=== PATIENT | female | born 1940 | race Two or more races ===

== ENCOUNTER 2025-02-26 08:16 | Outpatient (REF) | payer MEDICARE, SELFPAY ==
--- NOTE | 2025-02-26 | EMG_ITS ---
Chief complaint: Bilateral hand numbness and pain Reason for referral: G56.03 Carpal tunnel syndrome Referred by: Franky Meneses MD Procedure done: Bilateral upper extremity NCS / EMG Bilateral median and ulnar motor studies were performed. Bilateral median and ulnar mixed sensory studies were performed. Bilateral radial sensory studies were performed an EMG needle examination was performed. Bilateral median motor distal latencies were prolonged with minimal amplitudes and normal conduction velocities. Left ulnar conduction velocity was moderately slowed across elbow. It was mildly slow across right elbow. Median mixed sensory studies revealed significantly delayed distal latencies and moderately slow conduction velocities. Impression: 1. 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 Mild bilateral ulnar neuropathy across cubital tunnel MTDD
--- OUTSIDE RECORDS SUMMARY | 2025-02-26 08:29 | XMS_ITS | Clinical Summary ---
Author Organization [facility] Address [address] [place] [address] Phone Care Team Providers Care Event Promoter Name Role Phone Lalita Estevez MD Primary Care Provider [phone] Allergies No known active allergies Medications fluticasone furoate (Arnuity Ellipta) 100 mcg/actuation blister with device inhaler Inhale 1 puff by mouth 2 (two) times a day. 4 Active nystatin (MYCOSTATIN) cream Apply to affected area under breast bid prn Active aspirin 81 mg EC tablet Take by mouth Active Ventolin HFA 90 mcg/actuation inhaler INHALE 2 PUFFS INTO THE LUNGS EVERY 6 HOURS NEEDED FOR COUGH OR WHEEZING 18 g 5 Active losartan (COZAAR) 50 mg tablet TAKE 1 TABLET(50 MG) BY MOUTH AT BEDTIME 90 tablet 1 5 Active estradioL (ESTRACE) 0.01 % (0.1 mg/gram) vaginal cream Please use 0.5 g (a pea-sized amount) on your finger and place inside the vagina twice a week at night (Mondays and ) 42.5 g 3 5 Active folic acid (FOLVITE) 1 mg tablet Take 1 tablet (1,000 mcg total) by mouth 2 (two) times a week. 24 tablet 1 5 Active levothyroxine (SYNTHROID, LEVOTHROID) 100 mcg tablet Take 1 tablet (100 mcg total) by mouth 1 (one) time each day before breakfast. 90 tablet 1 5 Active cyanocobalamin (VITAMIN B-12) 1,000 mcg tablet Take 1 tablet (1,000 mcg total) by mouth 2 (two) times a week. 24 tablet 1 5 Active chlorthalidone (HYGROTON) 25 mg tablet Take 1 tablet (25 mg total) by mouth 1 (one) time each day. 90 tablet 1 5 Active atorvastatin (LIPITOR) 20 mg tablet Take 1 tablet (20 mg total) by mouth at bedtime. 90 tablet 1 5 Active acyclovir (ZOVIRAX) 400 mg tablet Take 1 tab (400 mg) by mouth 3 times a day for 5 days. 15 tablet 5 5 03/01/20 25 Active levothyroxine (SYNTHROID, LEVOTHROID) 100 mcg tablet TAKE 1 TABLET(100 MCG) BY MOUTH 1 TIME EACH DAY BEFORE BREAKFAST 90 tablet 1 5 02/20/20 25 Discontinu ed(Reorder ) cyanocobalamin (VITAMIN B-12) 1,000 mcg tablet TAKE 1 TABLET(1000 MCG) BY MOUTH 2 TIMES A WEEK 24 tablet 1 5 02/20/20 25 Discontinu ed(Reorder ) chlorthalidone (HYGROTON) 25 mg tablet Take 1 tablet (25 mg total) by mouth 1 (one) time each day. 90 tablet 5 02/20/20 25 Discontinu ed(Reorder ) atorvastatin (LIPITOR) 20 mg tablet Take 1 tablet (20 mg total) by mouth at bedtime. 90 tablet 5 02/20/20 25 Discontinu ed(Reorder ) Hospital, Clinic, or Other Facility Administered Medication Ordered Dose Route Frequency Start Date End Date Status triamcinolone acetonide (KENALOG-40) 40 mg/mL injection 40 mgIndications:Calcif ic tendinitis of right shoulder 40 mg IAtc Once PRN Procedure 01/31/2025 01/31/2025 Ended Active Problems Problem Noted Date Diagnosed Date Anxiety 04/10/2024 Hyperlipidemia 04/10/2024 Overview (06/04/2024): Hypothyroidism 04/10/2024 Asthma 04/10/2024 HTN (hypertension) 04/10/2024 Renal cyst 04/10/2024 Overview (04/10/2024): needs follow up ultrasound in 2 years Varicose veins of both lower extremities with pa in 07/13/2023 Lymphedema 07/13/2023 GERD (gastroesophageal reflux disease) Microalbuminuria 05/30/2023 Severe obesity (BMI 35.0-39. 9) with comorbidity ([facility] V24, [facility] V28) 05/30/2023 Type II diabetes mellitus wi th renal manifestations ([facility] V24, [facility] V28) 08/18/2021 Osteopenia 03/06/2018 Overview (12/13/2024): Normal in 2012, osteopenia in 2017- rpt in 3 yrs- 06/2020 -2.1- rpt in 2-3 yrs 12/07 T score spine -0.2 hip -1.8 FRAX score 17% 10 year fracture risk Urge incontinence 03/22/2014 Overview (04/10/2024): Retropubic mid urethral sling Lumbar degenerative disc disease 02/07/2013 Spinal stenosis of lumbar re gion with neurogenic claudication 02/07/2013 Osteoarthritis 12/14/2012 Resolved Problems Problem Noted Date Diagnosed Date Resolved Date Lymphatic edema 03/21/2024 04/09/2024 Encounters Date Type Department Care Team Description 02/19/2025 9:45 AM EDT Office Visit Adult Medicine [address] [phone] Lalita Estevez MD Primary hypertension (Primary Dx); Other hyperlipidemia; Hypothyroidism due to acquired atrophy of thyroid; Moderate persistent asthma without complication; Type 2 diabetes mellitus with chronic kidney disease, without long-term current use of insulin, unspecified CKD stage ([facility] V24, [facility] V28); Constipation, unspecified constipation type 02/19/2025 Results Follow-Up Adult [address] [phone] Lalita Estevez MD 01/31/2025 9:30 AM EDT Office Visit [facility] [address] [facility] [address] [place] [phone] Franky Meneses MD Calcific tendinitis of right shoulder (Primary Dx); Acquired trigger finger of left middle finger; Bilateral carpal tunnel syndrome 12/31/2024 9:30 AM EDT Office Visit [facility] [address] [facility] [address] [place] [phone] Franky Meneses MD Bilateral carpal tunnel syndrome (Primary Dx); Calcific tendinitis of right shoulder; Glenohumeral arthritis, right; Acquired trigger finger of left middle finger 12/27/2024 11:30 AM EDT Treatment [address] [phone] Jacki Thakur, PT Chronic left-sided low back pain, unspecified whether sciatica present (Primary Dx) 12/25/2024 3:00 PM EDT Office Visit Urogynecology [address] [phone] Stacy Liao MD Urge incontinence (Primary Dx); Urinary urgency; Urinary frequency; Nocturia; Detrusor overactivity; Nocturnal enuresis 12/24/2024 11:30 AM EDT Treatment [address] [phone] Jacki Thakur, PT Chronic left-sided low back pain, unspecified whether sciatica present (Primary Dx) 12/20/2024 11:30 AM EDT Treatment [address] [phone] Jacki Thakur, PT Chronic left-sided low back pain, unspecified whether sciatica present (Primary Dx) 12/18/2024 11:30 AM EDT Treatment [facility] [address] [phone] Jacki Thakur, PT Chronic left-sided low back pain, unspecified whether sciatica present (Primary Dx) 12/14/2024 11:30 AM EDT Treatment [address] [phone] Jacki Thakur, PT Chronic left-sided low back pain, unspecified whether sciatica present (Primary Dx) 12/13/2024 9:39 AM EDT - 12/13/2024 11:59 PM EDT Hospital Encounter [facility] Bone Density [address] [place] [phone] Osteopenia, unspecified location; Asymptomatic menopausal state Discharge Disposition: Home or Self Care 12/11/2024 11:30 AM EDT Treatment [address] [phone] Dennis Patricio, SALES SERVICE REP Chronic left-sided low back pain, unspecified whether sciatica present (Primary Dx) 12/06/2024 11:00 AM EDT Treatment [address] [phone] Srikanth Laguna, SALES SERVICE REP Chronic left-sided low back pain, unspecified whether sciatica present (Primary Dx) 12/04/2024 9:30 AM EDT Procedure visit Urogynecology - [address] [phone] Stacy Liao MD Detrusor overactivity (Primary Dx); Urge incontinence; Urinary urgency; Urinary frequency; Nocturia 11/30/2024 1:00 PM EDT Treatment [address] [phone] Jg Quigley, SALES SERVICE REP Chronic left-sided low back pain, unspecified whether sciatica present (Primary Dx) from Last 3 Months Immunizations Immunization Administration Dates Next Due Influenza Quadravalent, 0.5m l (Fluad) 65yo and older 02/22/2020 Influenza Quadravalent, 0.5m l (Fluzone High-dose) 65yo and older 02/16/2023,02/23/2022,02/17/2021 Influenza trivalent, 0.5mL ( Fluad) 65yo and older 02/19/2025,01/30/2024,02/23/2022,02/17,02/22/2020 Influenza trivalent, 0.5mL ( Fluzone High-dose) 65yo and older 01/30/2024,02/01/2019,02/21/2018,01/04,02/23/2016 Influenza trivalent, 0.5mL, preservative free (Fluarix; FluLaval; Fluzone) ages 6mo and older (Afluria) 3 years and older 03/07/2014,03/07/2013 Influenza trivalent, with pr eservative (Fluzone; Afluria) 6mo and older 03/07/2014,03/07/2013,02/19/2011,01/31 Influenza, Unspecified 02/13/2019 Moderna (age 6mo & older) Bi valent, COVID-19, 0.5 mL or 0.25 mL dosage 04/11/2022 Pfizer (ages 12 & older) Biv alent, COVID-19 04/11/2022 Pneumococcal conjugate 13 va lent (Prevnar 13, PCV13) 2mo and older 01/13/2018,01/04/2017 Pneumococcal polysaccharide 23 valent (Pneumovax 23) 2yo and older 02/21/2018,03/07/2013 Td Tetanus diptheria (Tdvax) 7yo and older 10/04/2016 Zoster Live 11/26/2013 Zoster recombinant (Shingrix ) 19yo and older 02/23/2022,04/26/2021,02/25/2021 Surgical History Surgery Date Site/Laterality Comments HERNIA REPAIR 03/2012 umbilical ABDOMINAL SURGERY 2006 : had peritonitis sec to obstruction and explaoratory laprotomy done in [facility] in 2006 SINUS SURGERY OTHER SURGICAL HISTORY : tubes placed in the ears TOTAL KNEE ARTHROPLASTY 06/2015 Right BREAST BIOPSY left bx neg Medical History Medical History Date Comments HTN (hypertension) Hyperlipidemia Hypothyroidism Anxiety Asthma Renal cyst needs follow up ultrasound in 2 years Osteoarthritis 12/14/2012 Lumbar degenerative disc disease 02/07/2013 Spinal stenosis of lumbar re gion with neurogenic claudication 02/07/2013 Urge incontinence 03/22/2014 Type II diabetes mellitus wi th renal manifestations ([facility], [facility] V[facility]) 08/18/2021 Family History Medical History Relation Name Comments Colon cancer Brother diagnosed in 60 s Other cancer Father Hypertension Mother Breast cancer Neg Hx Relation Name Status Comments Brother Father Mother Social History Tobacco Use Types Packs/Day Years Used Date Smoking Tobacco: Never Smokeless Tobacco: Never Tobacco Cessation:Counseling Given: Not Answered Alcohol Use Standard Drinks/Week Comments No 0 (1 standard drink = 0.6 oz pur e alcohol) Housing Instability Answer Date Recorde d Are you worried that in the next 2 months you may not have stable housing? No 10/11/2024 Food Access & Nutrition Answer Date Rec orded Do you have access to a vari ety of food including fruits and vegetables? Yes 10/11/2024 Access to Healthcare Answer Date Record ed Within the last 3 months, hector melvin many times did you visit the emergency department for your medical care? 0 10/11/2024 Health Literacy Answer Date Recorded How often do you need to hav e someone help you when you read instructions, pamphlets, or other written material from your doctor or pharmacy? Sometimes 10/11/2024 Caregiver: How often do you need to have someone help you when you read instructions, pamphlets, or other written material from your doctor or pharmacy? Not on file 10/11/2024 Financial Risk Answer Date Recorded How hard is it for you to pa y for the very basics like food, housing, medical care, and air conditioning / heating? Not very hard 10/11/2024 Transportation Answer Date Recorded Has the lack of transportati on kept you from meetings, work, or from getting things needed for daily living? No Has the lack of transportati on kept you from medical appointments or from getting medications? No 10/11/2024 Social Isolation Answer Date Recorded How often do you feel lonely or isolated from th ose around you? Never 10/11/2024 Food Risk Answer Date Recorded Within the past 12 months we worried whether our food would run out before we got money to buy more. Never true 10/11/2024 Within the past 12 months th e food we bought just didn't last and we didn't have money to get more. Never true 10/11/2024 Dependent Care Answer Date Recorded Do you need help finding or paying for care for your loved ones. For example, child day care center worker or elderly care for an older adult? No 10/11/2024 Education Answer Date Recorded Do you think completing more education or training, like finishing a GED, going to college, or learning a trade, would be helpful for you? No 10/11/2024 Employment and Income Answer Date Recor ded During the last four weeks, have you been actively looking for work? No 10/11/2024 Living Situation Answer Date Recorded What is your living situation? Unrecognized valu e 10/11/2024 Comments No Sex and Gender Information Value Date Recorded Sex Assigned at Not on file Legal Sex Female 5:41 AM EST Gender Identity Not on file Sexual Orientation Not on file Obstetrics History Para Term AB IAB SAB Ectopic Multiple Livin g Live Births 4 4 4 4 Date Outcome GA Total Labor Labor/2nd/3rd Weight Sex Type Anes PTL Deirdre A1 A5 Name Clin Term Term Term Term Last Filed Vital Signs Vital Sign Reading Time Taken Comments Blood Pressure 124/66 02/19/2025 9:54 AM EDT Pulse 64 02/19/2025 9:54 AM EDT Temperature 36.1 C (96.9 F) 02/19/2025 9:54 AM EDT Respiratory Rate 14 02/19/2025 9:54 AM EDT Oxygen Saturation 96% 02/19/2025 9:54 AM EDT Inhaled Oxygen Concentration - - Weight 98.1 kg (216 lb 3.2 oz) 02/19/2025 9:54 A M EDT Height 160 cm (5' 3 ) 02/19/2025 9:54 AM EDT Body Mass Index 38.3 02/19/2025 9:54 AM EDT Plan of Treatment Upcoming Encounters Date Type Department Care Team (Late st Contact Info) Description 03/08/2025 8:45 AM EDT Office Visit Orthopedic Surgery - [place] [address] [phone] Franky Meneses MD [address] [place] [address] 06/24/2025 11:30 AM EST Office Visit Adult Medicine [facility] [address] [place], [place] [phone] Edith Ortiz PA [address] [place], [place] 08/29/2025 11:00 AM EDT Office Visit Gastroenterology - [place] [address] [facility] [address] [place] [phone] Franci Lopez, FRED 175 [facility] [address] [place] [address] Health Maintenance Due Date Last Done Comments Diabetes: Annual Retina Eye Exam 1950 RSV Immunization Adult Patients (1 - 1-dose 75+ series) 09/07/2015 Diabetes: Annual Foot Exam 10/30/2024 10/31/2023 COVID-19 Vaccine ( season) 2025 04/11/2022, 04/11/2022, 11/24/2020, Additional history exists Diabetes: Blood Sugar Control Test (HGBA1C) 08/20/2025 02/19/2025, 10/11/2024, 06/11/2024, Additional history exists Diabetes: Annual Urine Albumin-Creatinine Ratio (uACR) 10/11/2025 10/11/2024, 01/31/2024 Diabetes: Annual GFR (Glomerular Filtration Rate) 10/11/2025 10/11/2024, 06/11/2024, 01/30/2024, Additional history exists Falls Risk Assessment 10/11/2025 10/11/2024, 024 Hypertension/CHF/CAD Annual BMP Blood Test 10/11/2025 10/11/2024, 06/11/2024, 01/30/2024, Additional history exists Medicare Annual Wellness Visit 10/11/2025 10/11/2024 Social Influencers of Health Screening 10/11/2025 10/11/2024 DTaP,Tdap,and Td Vaccines (2 - Td or Tdap) 10/04/2026 10/04/2016 Cholesterol Screening (Lipid Panel) 02/19/2030 02/19/2025, 01/30/2024, 01/30/2024 Osteoporosis Screening (Bone Density Screening) 12/13/2034 12/13/2024, 07/08/2020, 03/06/2018 Pneumococcal Vaccine: 50+ Years Completed 02/21/2018, 01/13/2018, 01/04/2017, Additional history exists Zoster Vaccines Completed 02/23/2022, 04/15, 02/25/2021, Additional history exists Depression Screening Completed 10/11/2024, 09/29/19 24 Influenza Vaccine Completed 02/19/2025, , 01/30/2024, Additional history exists HIB Vaccines Aged Out No longer eligi ble based on patient's age to complete this topic HPV Vaccines Aged Out No longer eligi ble based on patient's age to complete this topic Hepatitis A Vaccines Aged Out No long er eligible based on patient's age to complete this topic Hepatitis B Vaccines Aged Out No long er eligible based on patient's age to complete this topic IPV Vaccines Aged Out No longer eligi ble based on patient's age to complete this topic MMR Vaccines Aged Out No longer eligi ble based on patient's age to complete this topic Meningococcal ACWY Vaccine Aged Out N o longer eligible based on patient's age to complete this topic Meningococcal B Vaccine Aged Out No l onger eligible based on patient's age to complete this topic RSV Immunization Patients Under 20 months Aged Out No longer eligible based on patient's age to complete this topic Varicella Vaccines Aged Out No longer eligible based on patient's age to complete this topic Goals Goal Patient Goal Type Associated Problems Recent Progress Patient-Stated? Author <enter goal here> General Yes Navya Patel, OTR/L Note: TO see what can be done about the pain in my legs Procedures Procedure Name Priority Date/Time Associated Diagnosis Comments THYROID STIMULATING HORMONE Routine 02/19/2025 10:38 AM EDT Hypothyroidism due to acquired atrophy of thyroid HEMOGLOBIN A1C Routine 02/19/2025 10:38 AM EDT Type 2 diabetes mellitus with chronic kidney disease, without long-term current use of insulin, unspecified CKD stage ([facility] V24, [facility] V28) LIPID PANEL WITH REFLEX TO DIRECT LDL Routine 02/19/2025 10:38 AM EDT Other hyperlipidemia PA ARTHROCENTESIS/ASPIRA TION/INJECTION MAJOR JOINT/BURSA W/O U/S GUIDANCE Routine 01/31/2025 9:30 AM EDT Calcific tendinitis of right shoulder POC URINE AUTO W/O MICRO Routine 12/25/2024 3:17 PM EDT Urge incontinence BD BONE DENSITY DXA AXIAL SKELETON Routine 12/13/2024 10:18 AM EDT Osteopenia, unspecified location Asymptomatic menopausal state CULTURE URINE Routine 11/30/2024 9:44 AM EDT OAB (overactive bladder) Urinary tract infection without hematuria, site unspecified MICROALBUMIN CREATININE URINE RATIO Routine 10/11/2024 12:12 PM EDT Type 2 diabetes mellitus with stage 2 chronic kidney disease, without long-term current use of insulin ([facility] V24, [facility] V28) COMPREHENSIVE METABOLIC PANEL Routine 10/11/2024 12:12 PM EDT Microalbuminuria DIABETES FOOT EXAM Routine 10/31/2023 DEPRESSION SCREENING Routine 09/29/2023 FALLS RISK ASSESSMENT Routine 09/29/2023 from Last 3 Months or Most Recently Relevant to Health Maintenance Results * Lipid panel with reflex to direct LDL (02/19/2025 10:38 AM EDT) [facility] Cholesterol 125 0 - 200 mg/dL LAB CHEMISTRY METHOD 02/19/2025 3:04 PM EDT [facility] Triglycerides 142 0 - 150 mg/dL LAB CHEMISTRY METHOD 02/19/2025 3:04 PM EDT [facility] HDL 55 >=40 mg/dL LAB CHEMISTRY METHOD 02/19/2025 3:04 PM EDT [facility] LDL Calculated 42 0 - 100 mg/dL LAB CHEMISTRY METHOD 02/19/2025 3:04 PM EDT [facility] Comment:Estimated LDL Calcul ated using equation: Total cholesterol - HDL cholesterol - (Triglycerides/5) VLDL Cholesterol Angel 28.4 mg/dL LAB CHEMISTRY METHOD 02/19/2025 3:04 PM EDT [facility] Non HDL Chol. (LDL+VLDL) 70 <145 mg/dL LAB CHEMISTRY METHOD 02/19/2025 3:04 PM EDT [facility] Chol/HDL Ratio 2.3 0.0 - 4.4 LAB CHEMISTRY METHOD 02/19/2025 3:04 PM EDT [facility] Blood Venous blood specimen / Unknown Venipuncture / Unknown 02/19/2025 10:38 AM EDT 02/19/2025 10:38 AM EDT us Lalita Estevez MD LAB BLOOD ORDERABLES Final Resul t [facility] [address] [place] [address], * Thyroid stimulating hormone (02/19/2025 10:38 AM EDT) TSH 2.67 0.40 - 4.00 mcIU/mL LAB CHEMISTRY METHOD 02/19/2025 3:49 PM EDT [facility] Blood Venous blood specimen / Unknown Venipuncture / Unknown 02/19/2025 10:38 AM EDT 02/19/2025 10:38 AM EDT us Lalita Estevez MD LAB BLOOD ORDERABLES Final Resul t Performing Organization Address City/[facility] de Phone Number [facility] [address] [place] [address], * Hemoglobin A1c (02/19/2025 10:38 AM EDT) Hemoglobin A1C 6.4 <6.5 % LAB CHEMISTRY METHOD 02/19/2025 1:43 PM EDT [facility] Mean Bld Glu Estim. 137 mg/dL LAB CHEMISTRY METHOD 02/19/2025 1:43 PM EDT [facility] Blood Venous blood specimen / Unknown Venipuncture / Unknown 02/19/2025 10:38 AM EDT 02/19/2025 10:38 AM EDT us Lalita Estevez MD LAB BLOOD ORDERABLES Final Resul t Performing Organization Address [facility] Co de Phone Number [facility] [address] [place] [address], [place] [phone] * PA ARTHROCENTESIS/ASPIRATION/INJECTION MAJOR JOINT/BURSA W/O U/S GUIDANCE (01/31/2025 9:30 AM EDT) Narrative Franky Meneses MD - 01/31/2025 9:30 AM EDT Franky Meneses MD 01/31/2025 10:46 AM L Inj/Asp: R subacromial bursa Indications: pain Details: 22 G needle, posterior approach Medications: 40 mg triamcinolone acetonide 40 mg/mL Site was prepped in standard fashion using alcohol swab, sterile technique was used to perform the injection, the patient tolerated the procedure well and a band-aid dressing was applied Informed Consent: Site: Right subacromial Laterality: Right Relevant images/test results available and reviewed: yes Health status cleared: Yes Procedure/treatment, purpose, treatment alternatives, risks/potential complications and benefits explained: yes Risk/complications/benefits details: Risk/complications/benefits details: Risks and benefits of corticosteroid injection were discussed, including risk of pain, bleeding, infection, tissue attenuation, tendon rupture, changes in skin color, and injury to surrounding structures such as arteries, veins and nerves. We also discussed the patient may develop worsening pain for a few days before having improvement in their symptoms. Patient questions answered: yes Patient agrees, verbalizes understanding, and wants to proceed: yes Consent given by: Patient Informed consent discussion completed by Physician/DEMI with patient: Verbal Pre-procedure timeout performed: yes us Franky Meneses MD IN CLINIC/BEDSIDE ORDERABLES Fin al Result * POC Urine Auto W/O Micro (12/25/2024 3:17 PM EDT) Bilirubin UA POC Negative Negative Ketones UA POC Negative Negative Specific Wing UA POC 1.020 Blood UA POC Negative Negative PH UA POC 6.5 Protein UA POC Negative Negative mg/dL Urobilinogen UA POC 0.2 E.U./dL 0.2 E.U./dL, 1.0 E.U./dL, 8 , Unable to interpret due to interfering substances mg/dL Nitrite UA POC Negative Negative Leukocytes UA POC Negative Negative Urine Urine specimen obtained by clean catch procedure / Unknown 12/25/2024 3:17 PM EDT Stacy Liao MD POINT OF CARE TEST ENTER/EDIT OR DERABLES Final Result * BD Bone Density DXA Axial Skeleton (12/13/2024 10:18 AM EDT) Anatomical Region Laterality Modality Wrist, Hip, L-spine Bone Densito metry 12/13/2024 10:5 6 AM EDT Impressions 12/13/2024 10:57 AM EDT 1. Osteopenia. 2. FRAX analysis yields a 10-year probability of major osteoporotic fracture of 17.7% and a 10-year probability of hip fracture of 4.8%. Code 97540 -------- FINAL REPORT -------- Dictated By: Orlando Bang Dictated Date: 12/13/2024 10:56 ET Assigned Physician: Orlando Bang Reviewed and Electronically Signed By: Orlando Bang Signed Date: 12/13/2024 10:57 ET Workstation ID: [id number] Transcribed By: Self Edit Transcribed Date: 12/13/2024 10:56 ET Narrative 12/13/2024 10:57 AM EDT HISTORY: The patient is an 84-year-old postmenopausal female with clinical concern for metabolic bone disease. FINDINGS: Dual energy x-ray absorptiometry of the lumbar spine and femurs is performed. The mean bone mineral density at L3-4 is 1.175 gm/cm2 which is 98% of that of young normals and 106% of that of age matched controls. This yields a T-score of -0.2 and a Z-score of 0.6 and there is therefore no evidence of osteoporosis or osteopenia here. The mean bone mineral density of the femurs bilaterally is 0.829 gm/cm2 which is 82% of that of young normals and 100% of that of age matched controls. This yields a T-score of -1.4 and a Z-score of 0.0 which is diagnostic of osteopenia. The T-score of the right femoral neck is -1.8 and that of the left femoral neck is -1.7 which is diagnostic of osteopenia. Procedure Note Orlando Bang MD - 12/13/2024 HISTORY: The patient is an 84-year-old postmenopausal female withclinical concern for metabolic bone disease. FINDINGS: Dual energy x-ray absorptiometry of the lumbar spine and femursis performed. The mean bone mineral density at L3-4 is 1.175 gm/cm2 whichis 98% of that of young normals and 106% of that of age matched controls.This yields a T-score of -0.2 and a Z-score of 0.6 and there is thereforeno evidence of osteoporosis or osteopenia here. The mean bone mineral density of the femurs bilaterally is 0.829 gm/hj9vykto is 82% of that of young normals and 100% of that of age matchedcontrols. This yields a T-score of -1.4 and a Z-score of 0.0 which isdiagnostic of osteopenia. The T- score of the right femoral neck is -1.8and that of the left femoral neck is -1.7 which is diagnostic ofosteopenia. IMPRESSION: 1. Osteopenia. 2. FRAX analysis yields a 10-year probability of major osteoporoticfracture of 17.7% and a 10-year probability of hip fracture of 4.8%. Code 44924 -------- FINAL REPORT -------- Dictated By: Orlando Bang Dictated Date: 12/13/2024 10:56 ET Assigned Physician: Orlando Bang Reviewed and Electronically Signed By: Orlando Bang Signed Date: 12/13/2024 10:57 ET Workstation ID: [id number] Transcribed By: Self Edit Transcribed Date: 12/13/2024 10:56 ET us Edith LEACH IMG DXA PROCEDURES Final Resu lt * Culture urine (11/30/2024 9:44 AM EDT) Culture, Urine 10,000-49,000 CFU/mL Mixed bacterial morphotypes present suggestive of possible contamination during collection. Suggest appropriate recollection if clinically indicated. 12/01/2024 9:31 AM EDT [facility] Urine Urine specimen obtained by clean catch procedure / Unknown Non-blood Collection / Unknown 11/30/2024 9:44 AM EDT 11/30/2024 9:44 AM EDT us Stacy Liao MD LAB MICROBIOLOGY - GENERAL ORDER LEEANNA Final Result [facility] [address] [place] [address], [place] [phone] * Microalbumin creatinine urine ratio (10/11/2024 12:12 PM EDT) Creatinine, Urine 137.0 mg/dL LAB CHEMISTRY METHOD 10/11/2024 5:40 PM EDT [facility] Microalb, Ur 8.2 0.0 - 29.0 mg/L LAB CHEMISTRY METHOD 10/11/2024 5:40 PM EDT [facility] Microalb/Creat Ratio 6 <30 mg/g creat LAB CHEMISTRY METHOD 10/11/2024 5:40 PM EDT [facility] Urine Urine specimen from urethra / Unknown Non-blood Collection / Unknown 10/11/2024 12:12 PM EDT 10/11/2024 12:12 PM EDT us Edith LEACH LAB URINE ORDERABLES Final Re sult [facility] [address] [place] [address], * Comprehensive metabolic panel (10/11/2024 12:12 PM EDT) Sodium 136 133 - 145 mmol/L LAB CHEMISTRY METHOD 10/11/2024 3:52 PM [facility] Potassium 3.8 3.5 - 5.5 mmol/L LAB CHEMISTRY METHOD 10/11/2024 3:52 PM [facility] Chloride 100 96 - 110 mmol/L LAB CHEMISTRY METHOD 10/11/2024 3:52 PM [facility] CO2 29 21 - 32 mmol/L LAB CHEMISTRY METHOD 10/11/2024 3:52 PM [facility] Anion Gap 7 3 - 11 LAB CHEMISTRY METHOD 10/11/2024 3:52 PM [facility] Glucose 98 70 - 100 mg/dL LAB CHEMISTRY METHOD 10/11/2024 3:52 PM [facility] BUN 18 5 - 25 mg/dL LAB CHEMISTRY METHOD 10/11/2024 3:52 PM [facility] Creatinine 0.79 0.50 - 1.10 mg/dL LAB CHEMISTRY METHOD 10/11/2024 3:52 PM [facility] eGFR 74 >=60 mL/min/1. 73m2 LAB CHEMISTRY METHOD 10/11/2024 3:52 PM [facility] Comment:Calculation based on the Chronic Kidney Disease Epidemiology Collaboration (CKD-EPI) equation refit without adjustment for race. BUN/Creatinine Ratio 22.8 LAB CHEMISTRY METHOD 10/11/2024 3:52 PM EDT [facility] Calcium 10.5 8.5 - 10.5 mg/dL LAB CHEMISTRY METHOD 10/11/2024 3:52 PM T [facility] AST (SGOT) 25 10 - 42 unit/L LAB CHEMISTRY METHOD 10/11/2024 3:52 PM [facility] ALT (SGPT) 25 10 - 60 unit/L LAB CHEMISTRY METHOD 10/11/2024 3:52 PM T [facility] Alkaline Phosphatase 73 42 - 121 unit/L LAB CHEMISTRY METHOD 10/11/2024 3:52 PM [facility] Total Protein 8.0 6.0 - 8.0 g/dL LAB CHEMISTRY METHOD 10/11/2024 3:52 PM [facility] Albumin 3.8 3.2 - 5.0 g/dL LAB CHEMISTRY METHOD 10/11/2024 3:52 PM [facility] Total Bilirubin 0.4 0.0 - 1.4 mg/dL LAB CHEMISTRY METHOD 10/11/2024 3:52 PM [facility] Blood Venous blood specimen / Unknown Venipuncture / Unknown 10/11/2024 12:12 PM EDT 10/11/2024 12:12 PM EDT Edith LEACH LAB BLOOD ORDERABLES Final Re sult [facility] [address] [place] [address], * Diabetes Foot Exam (10/31/2023) Pathologist [facility] Diabetes: Annual Foot Exam abstracted Historical Provider HEALTH MAINTENANCE Final Result * Falls Risk Assessment (09/29/2023) Pathologist [facility] Falls Risk Assessment abstracted Historical Provider HEALTH MAINTENANCE Final Result * Depression Screening (09/29/2023) Depression Screening abstracted us Historical Provider HEALTH MAINTENANCE Final Result from Last 3 Months or Most Recently Relevant to Health Maintenance Insurance [place] MEDIC[place] AET[place] MEDICARE ADVANTAGE [place] - [place] Care Teams Event Promoter Relationship Specialty Start Date End Date Lalita Estevez MD [address] [place] [address] PCP - General Internal Medicine 03/20/21
--- OUTSIDE RECORDS SUMMARY | 2025-02-26 08:29 | XMS_ITS | Encounter Summary ---
Author Organization [place] [address] Care Team Providers Care Computer Education Teacher Name Role Phone Lalita Estevez MD Primary Care Provider [phone] Encounter Details Date Type Department Care Team (Late st Contact Info) Description 02/19/2025 Results Follow-Up Adult Medicine [facility] [address] [place] [address] Lalita Estevez MD [address] [place], [place] Social History Tobacco Use Types Packs/Day Years Used Date Smoking Tobacco: Never Smokeless Tobacco: Never Alcohol Use Standard Drinks/Week Comments No 0 [...] Record ed Within the last 3 months, ho w many times did you visit the emergency [...] for your loved ones. For example, child care specialist or elderly care for an older adult? [...] on file Sexual Orientation Not on file documented as of this encounter Plan of Treatment Upcoming Encounters Date Type Department Care Team (Late st Contact Info) Description 03/08/2025 8:45 AM EDT Office Visit Orthopedic Surgery - [place] [address] [phone] Franky Meneses MD [address] [place] [address] 06/24/2025 11:30 AM EST Office Visit Adult Medicine [facility] [address] [place], [place] [phone] Edith Ortiz PA [address] [place], [place] 08/29/2025 11:00 AM EDT Office Visit Gastroenterology - [place] [address] [phone] Franci Lopez NP [address] [address] documented as of this encounter Goals Goal Patient Goal Type Associated Problems Recent Progress Patient-Stated? Author <enter goal here> General Yes Navya Patel, OTR/L Note: TO see what can be done about the pain in my legs documented as of this encounter Visit Diagnoses Not on filedocumented in this encounter Additional Health Concerns Assessment Noted Time PHQ-9 Depression Total Score: 1 10/12/19 25 11:18 AM EDT A fall risk assessment has been complete d for the patient 10/11/2024 11:15 AM EDT documented as of this encounter Care Teams Computer Education Teacher Relationship Specialty Start Date End Date Lalita Estevez MD [address] [place] [address] PCP - General Internal Medicine 03/20/21 documented as of this encounter
--- OUTSIDE RECORDS SUMMARY | 2025-02-26 08:29 | XMS_ITS ---
Author Name [facility] Organization Unknown History of Medication Use Medication Directions Dispensed Refills Start Date End Date Stat us oxyBUTYnin XL (DITROPAN-XL) 5 mg 24 hr tablet Take 1 tablet (5 mg total) by mouth 1 (one) time each day. Do not crush, chew, or split. 09/07/2024 active folic acid (FOLVITE) 1 mg tablet TAKE 1 TABLET BY MOUTH TWICE A WEEK 07/05/2024 active estradioL (ESTRACE) 0.01 % (0.1 mg/gram) vaginal cream Please use 0.5 g (a pea-sized amount) on your finger and place inside the vagina twice a week at night (Mondays and ) 06/28/2024 active levothyroxine (SYNTHROID, LEVOTHROID) 100 mcg tablet Take 1 tablet (100 mcg total) by mouth 1 (one) time each day before breakfast. 06/26/2024 active chlorthalidone (HYGROTON) 25 mg tablet Take 1 tablet (25 mg total) by mouth 1 (one) time each day. 06/11/2024 active Linzess 290 mcg capsule TAKE 1 CAPSULE BY MOUTH DAILY 05/28/2024 active Ventolin HFA 90 mcg/actuation inhaler INHALE 2 PUFFS INTO THE LUNGS EVERY 6 HOURS NEEDED FOR COUGH OR WHEEZING 05/28/2024 active losartan (COZAAR) 50 mg tablet Take 1 tablet (50 mg total) by mouth at bedtime. 05/22/2024 active atorvastatin (LIPITOR) 20 mg tablet Take 1 tablet (20 mg total) by mouth at bedtime. at bedtime. 05/04/2024 active cyanocobalamin (VITAMIN B-12) 1,000 mcg tablet Take 1 tablet (1,000 mcg total) by mouth 2 (two) times a week. 04/16/2024 active omeprazole (PriLOSEC) [address] capsule TAKE 1 CAPSULE BY MOUTH EVERY MORNING 04/09/2024 active acyclovir (ZOVIRAX) 400 mg tablet Take 1 tablet (400 mg total) by mouth 3 (three) times a day. 02/04/2024 active fluticasone furoate (Arnuity Ellipta) 100 mcg/actuation blister with device inhaler Inhale 1 puff by mouth 2 (two) times a day. 01/30/2024 active ibuprofen (ADVIL,MOTRIN) 600 mg tablet Take 1 tablet (600 mg total) by mouth every 6 (six) hours if needed. for pain 09/29/2023 active acetaminophen (Tylenol Extra Strength) 500 mg tablet Take 1-2 Tablets by mouth every 6 hours as needed for Pain for up to 10 days active aspirin 81 mg EC tablet Take by mouth active nystatin (MYCOSTATIN) cream Apply to affected area under breast bid prn active Problems Problem Status Onset Date Problem Type Date of Resoluti on Source Osteopenia active 2018-03-06 ProblemAct [facility] Type II diabetes mellitus with renal manifestations ([facility] V24, [facility] V28) active 2021-08-18 ProblemAct [facility] GERD (gastroesophageal reflux disease) active 2023-05-30 ProblemAct [facility] Microalbuminuria active 2023-05-30 ProblemAct C [facility] Varicose veins of both lower extremities with pain active 2023-07-13 ProblemAct [facility] Osteoarthritis active 2012-12-14 ProblemAct [facility] Hypothyroidism active 2024-04-10 ProblemAct [facility] Lumbar degenerative disc disease active 2013-02-07 ProblemAct [facility] Severe obesity (BMI 35.0-39.9) with comorbidity ([facility] V24, [facility] V28) active 2023-05-30 ProblemAct [facility] Spinal stenosis of lumbar region with neurogenic claudication active 2013-02-07 ProblemAct [facility] Anxiety active 2024-04-10 ProblemAct [facility] Lymphedema active 2023-07-13 ProblemAct [facility] Asthma active 2024-04-10 ProblemAct [facility] HTN (hypertension) active 2024-04-10 ProblemAct [facility] Hyperlipidemia active 2024-04-10 ProblemAct [facility] Urge incontinence active 2014-03-22 ProblemAct [facility] Renal cyst active 2024-04-10 ProblemAct [facility] Immunizations Vaccine Date Source Lot Number Status Influenza trivalent, 0.5mL ( Fluad) 65yo and older 01/30/2024 [facility] [id number] completed Pfizer (ages 12 & older) Biv alent, COVID-19 04/11/2022 [facility] [id number] completed Influenza trivalent, 0.5mL ( Fluad) 65yo and older 02/23/2022 [facility] completed Zoster recombinant (Shingrix ) 19yo and older 02/23/2022 [facility] completed Zoster recombinant (Shingrix ) 19yo and older 04/26/2021 [facility] completed Zoster recombinant (Shingrix ) 19yo and older 02/25/2021 [facility] [id number] completed Influenza trivalent, 0.5mL ( Fluad) 65yo and older 02/17/20[id number] Influenza trivalent, 0.5mL ( Fluad) 65yo and older 02/22/2020 [facility] [id number] completed Influenza, Unspecified 02/13/2019 [facility] co mpleted Pneumococcal conjugate 13 va lent (Prevnar 13, PCV13) 2mo and older 01/13/2018 [facility] [id number] complet ed Td Tetanus diptheria (Tdvax) 7yo and older 10/04/2016 [facility] [id number] completed Influenza trivalent, 0.5mL, preservative free (Fluarix; FluLaval; Fluzone) ages 6mo and older (Afluria) 3 years and older 03/07/2014 [facility] completed Zoster Live 11/26/2013 [facility] [id number] completed Influenza trivalent, 0.5mL, preservative free (Fluarix; FluLaval; Fluzone) ages 6mo and older (Afluria) 3 years and older 03/07/2013 [id number] completed Pneumococcal polysaccharide 23 valent (Pneumovax 23) 2yo and older 03/07/2013 [facility] [id number] com pushpated
== END 2025-02-26 08:17 | disposition home or self-care (01) ==
LOC: HO.NEURO 08:16
PROVIDERS: PCP Internal Medicine; Visit Provider Student in an Organized Health Care Education/Training Program
DX: G56.03 Carpal tunnel syndrome, bilateral upper limbs (principal); R20.0 Anesthesia of skin; M79.641 Pain in right hand; M79.642 Pain in left hand
CPT/HCPCS: 95886; 95911

== ENCOUNTER → 2025-02-26 08:30 | Outpatient (BNV) | payer MEDICARE, SELFPAY | PROVIDERS: PCP Internal Medicine; Visit Provider Psychiatry & Neurology Neurology | DX: G56.03 Carpal tunnel syndrome, bilateral upper limbs (principal); G56.23 Lesion of ulnar nerve, bilateral upper limbs | CPT/HCPCS: 95886; 95911 ==